=== PATIENT | male | born 1990 ===

== ENCOUNTER 2017-02-08 21:41 | Emergency (ER) | payer SELFPAY ==
[2017-02-08 21:48] VITALS: BP 117/69; PULSE 78; RESP 18; TEMP 97.5; O2SAT 99
--- NOTE | 2017-02-08 22:17 | ED PDOC ---
HPI: Head Injury Time Seen by Provider: 02/08/17 21:55 Chief Complaint (Nursing): GI Problem Chief Complaint (Provider): Headache/Vomiting History Per: Patient History/Exam Limitations: no limitations Injury Occurred (Timing): Days Ago: (7) Additional Complaint(s): Magdiel Carvalho is a 26 year old male that presents to the ED with a chief complaint of vomiting anf headache that he has been experiencing for the past 7 days. Patient reports that he was helping his friend move one week ago when he accidentally hit his head and rib cage against a banister. He states that since then, he had been vomiting 3-4 times each day with an associated right temporal headache and right rib cage pain. Past Medical History Reviewed: Historical Data, Nursing Documentation, Vital Signs Vital Signs: Last Vital Signs Temp 97.5 F L 02/08/17 21:45 Pulse 78 02/08/17 21:45 Resp 18 02/08/17 21:45 BP 117/69 02/08/17 21:45 Pulse Ox 99 02/08/17 21:45 - Medical History PMH: No Chronic Diseases - Family History Family History: States: Unknown Family Hx - Immunization History Hx Tetanus Toxoid Vaccination: Yes Hx Influenza Vaccination: Yes Hx Pneumococcal Vaccination: Yes - Home Medications Home Medications: Ambulatory Orders Medication Instructions Recorded Ibuprofen [Motrin Tab] 1 tab PO Q6H PRN #15 tab 07/05/15 Amoxicillin/Clavulanate [Augmentin 1 tab PO BID #14 tab 08/06/16 875 MG-125 MG] Ibuprofen [Motrin] 600 mg PO Q6H #30 tab 08/06/16 Ibuprofen [Motrin Tab] 600 mg PO Q6 #30 tab 02/08/17 Ondansetron [Zofran] 4 mg PO Q8H #12 tab 02/08/17 - Allergies Allergies/Adverse Reactions: Allergies Allergy/AdvReac Type Severity Reaction Status Date / Time No Known Allergies Allergy Verified 08/06/16 22:20 Review of Systems Cardiovascular: Positive for: Other (right rib cage pain) Gastrointestinal: Positive for: Vomiting (3-4x each day) Neurological: Positive for: Headache (right temporal headache) Physical Exam - Reviewed Nursing Documentation Reviewed: Yes Vital Signs Reviewed: Yes - Physical Exam Appears: Positive for: Non-toxic, No Acute Distress Head Exam: Positive for: ATRAUMATIC, NORMOCEPHALIC Skin: Positive for: Normal Color, Warm Eye Exam: Positive for: Normal appearance, EOMI, PERRL Cardiovascular/Chest: Positive for: Regular Rate, Rhythm, Other (healing bruises present to right rib cage). Negative for: Murmur Respiratory: Positive for: Normal Breath Sounds. Negative for: Wheezing Gastrointestinal/Abdominal: Positive for: Normal Exam, Soft. Negative for: Tenderness Neurologic/Psych: Positive for: Alert, [employer] II-XII, Oriented, Gait (steady). Negative for: Motor/Sensory Deficits, Aphasia, Facial Droop - ECG O2 Sat by Pulse Oximetry: 99 (RA) Pulse Ox Interpretation: Normal Medical Decision Making Medical Decision Making: Impression: Post-Concussive Syndrome Plan: * CT Head w/o contrast * X-Ray Right Ribs * Zofran 4 mg PO * Reevaluation 2300 PO challenged, no vomiting. Pt. feeling better. No intracranial abnormality on CT, normal rib xray. Counseling given on avoiding repeat head injury, referral for neurology given. Return preacautions given. Scribe Attestation: Documented by Jessi Sullivan, acting as a scribe for Conrad Ash MD. Provider Scribe Attestation: All medical record entries made by the Scribe were at my direction and personally dictated by me. I have reviewed the chart and agree that the record accurately reflects my personal performance of the history, physical exam, medical decision making, and the department course for this patient. I have also personally directed, reviewed, and agree with the discharge instructions and disposition. Disposition - Clinical Impression Clinical Impression: Postconcussion syndrome - Disposition Referrals: Rodrigue Flores MD [Staff Provider] - Disposition Time: 23:00 Condition: STABLE Prescriptions: Ibuprofen [Motrin Tab] 600 mg PO Q6 #30 tab Ondansetron [Zofran] 4 mg PO Q8H #12 tab Instructions: Post Concussion Syndrome (ED), Head Injury (ED) Forms: [employer] (Chinese)
--- NOTE | 2017-02-09 08:11 | CT ---
PROCEDURE: CT HEAD WITHOUT CONTRAST. HISTORY: s/p head injury 1 week ago, vomiting COMPARISON: None available. TECHNIQUE: Axial computed tomography images were obtained through the head/brain without intravenous contrast. Radiation dose: Total exam DLP = 860.55 mGy-cm. This CT exam was performed using one or more of the following dose reduction techniques: Automated exposure control, adjustment of the mA and/or kV according to patient size, and/or use of iterative reconstruction technique. FINDINGS: HEMORRHAGE: No intracranial hemorrhage. BRAIN: No mass effect or edema. No atrophy or chronic microvascular ischemic changes. VENTRICLES: Unremarkable. No hydrocephalus. CALVARIUM: Unremarkable. PARANASAL SINUSES: Unremarkable as visualized. No significant inflammatory changes. MASTOID AIR CELLS: Unremarkable as visualized. No inflammatory changes. OTHER FINDINGS: None. IMPRESSION: No evidence of acute intracranial hemorrhage intracranial collection mass effect or midline shift. Preliminary report was submitted by [facility].
--- NOTE | 2017-02-09 10:45 | RAD ---
PROCEDURE: Radiographs of the Chest and Right Ribs. HISTORY: s/p fall one week ago COMPARISON: None available. TECHNIQUE: Frontal radiograph of the chest and multiple oblique radiographs of the right ribs were obtained. FINDINGS: RIGHT RIBS: No acute fracture or focal lesion visualized. LUNGS: The lungs are well inflated and clear. PLEURA: No pneumothorax or pleural fluid. CARDIOVASCULAR: Normal sized heart. No pulmonary vascular congestion. OTHER FINDINGS: None. IMPRESSION: No acute rib fracture. Clear lungs.
== END 2017-02-09 00:05 | disposition home or self-care (01) ==
LOC: H.ER 21:41
DX: F07.81 Postconcussional syndrome (principal)